=== PATIENT | male | born 1945 | race Caucasian/White ===

== ENCOUNTER 2022-07-07 16:40 | Emergency (ER) | payer OTHER ==
[~2022-07-07] VITALS: Ht 177.8 cm; Wt 90.7 kg
[2022-07-07 17:04] LABS: Source, Urine Clean Catch
[2022-07-07 17:21] LABS: Bilirubin, Urine Neg (Neg); Blood, Urine 2+ (Neg); Glucose Qualitative, Urine 3+ (Neg); Ketones, Urine 4+ (Neg); Leukocyte Esterase, Urine Neg (Neg); Nitrite, Urine Neg (Neg); Protein, Urine 3+ (Neg); Urobilinogen, Urine 1+ (Normal)
[2022-07-07 17:45] LABS: Appearance, Urine Hazy (Clear); Color, Urine Yellow (P-Yellow)
[2022-07-07 17:49] LABS: Red Blood Cells, Urine 0-2 /hpf (0-2); Squamous Epithelial Cells Rare /hpf (Few)
[2022-07-07] MEDS ORDERED: Aspir 8181 MG PO (17:49)
[2022-07-07] MEDS ORDERED: Amlodipine Bes2.5 MG PO (17:49)
[2022-07-07 17:50] LABS: Bacteria Mod /hpf; Mucus Mod (0-Heavy); Renal Epithelial Few /hpf (0-Rare)
[2022-07-07] MEDS ORDERED: FAMO40 PO (17:50)
[2022-07-07] MEDS ORDERED: Carvedilol12.5 MG PO (17:50)
[2022-07-07] MEDS ORDERED: THERA-D2000 UNIT PO (17:50)
[2022-07-07 17:51] LABS: Granular Casts 0-2 /lpf (0); Hyaline Casts 0-2 /lpf (0-2)
[2022-07-07] MEDS ORDERED: LISI20 PO (17:51)
[2022-07-07] MEDS ORDERED: Crestor20 MG PO (17:51)
[2022-07-07] MEDS ORDERED: NITR.4SL SL (17:51)
[2022-07-07] MEDS ORDERED: Isosorbide Mono30 MG PO (17:51)
[2022-07-07 18:27] LABS: BASOPHILS ABSOLUTE AUTO 0.02 K/mm3 (0.00-0.23); BASOPHILS PERCENT AUTO 0 % (0-2); EOSINOPHILS PERCENT AUTO 0 % (0-6); Hematocrit 42.9 % (37.0-53.0); Hemoglobin 15.3 g/dL (13.5-17.5); IMMATURE GRAN ABSOLUTE AUTO 0.02 K/mm3 (0.00-0.10); IMMATURE GRAN PERCENT AUTO 0 % (0-1); LYMPHOCYTES ABSOLUTE AUTO 0.98 K/mm3 (0.84-5.20); LYMPHOCYTES PERCENT AUTO 9 % (21-46); MONOCYTES ABSOLUTE AUTO 0.44 K/mm3 (0.16-1.47); MONOCYTES PERCENT AUTO 4 % (4-13); Mean Corpuscular HGB 30.5 pg (26.0-34.0); Mean Corpuscular HGB Conc 35.7 g/dL (31.5-36.5); Mean Corpuscular Volume 86 fL (80-100); Mean Platelet Volume 9.8 fL (9.1-12.4); NEUTROPHILS ABSOLUTE AUTO 9.86 K/mm3 (1.96-9.15); NEUTROPHILS PERCENT AUTO 87 % (41-73); Platelet Count 211 K/mm3 (150-400); RDW Coefficient Variation 12.6 % (11.7-14.2); RDW Standard Deviation 39.3 fL (35.1-46.3); Red Blood Cell Count 5.02 M/mm3 (4.30-5.90); White Blood Cell Count 11.32 K/mm3 (4.00-11.30)
[2022-07-07 19:06] LABS: Albumin, Blood 4.2 g/dL (3.4-5.0); Albumin/Globulin Ratio 1.2 (0.8-1.8); Bilirubin, Total 2.3 mg/dL (0.1-1.0); Bun/Creatinine Ratio 18.1 (12.0-20.0); Calcium, Blood 9.7 mg/dL (8.5-10.1); Creatinine, Blood 0.83 mg/dL (0.60-1.20); Globulin, Blood 3.4 g/dL (2.2-4.0); Potassium, Blood 3.9 mmol/L (3.5-5.5); Total Protein, Blood 7.6 g/dL (6.4-8.2)
== END 2022-07-07 21:01 | disposition home or self-care (01) ==
LOC: ER 16:40
PROVIDERS: Student in an Organized Health Care Education/Training Program
DX: M54.50 Low back pain, unspecified (principal); K82.8 Other specified diseases of gallbladder; E80.6 Other disorders of bilirubin metabolism; I48.91 Unspecified atrial fibrillation; Z79.899 Other long term (current) drug therapy; Z79.82 Long term (current) use of aspirin; Z87.891 Personal history of nicotine dependence
CPT/HCPCS: 36415; 74176; 80053; 81001; 85025; 87086; 96374; 96375; 99284-25; A9270; J1885; J2270; J7030

== ENCOUNTER 2024-12-09 08:20 | Inpatient (IN) | payer OTHER ==
[~2024-12-09] VITALS: Ht 177.8 cm; Wt 87.4 kg
[~2024-12-09 08:20] MED LIST: Amlodipine Bes2.5 MG PO; Aspir 8181 MG PO; Carvedilol12.5 MG PO; Crestor20 MG PO; FAMO40 PO; Isosorbide Mono30 MG PO; LISI20 PO; NITR.4SL SL; THERA-D2000 UNIT PO
[2024-12-09 09:10] LABS: BASOPHILS ABSOLUTE AUTO 0.03 K/mm3 (0.00-0.23); BASOPHILS PERCENT AUTO 0 % (0-2); EOSINOPHILS PERCENT AUTO 1 % (0-6); Hematocrit 37.3 % (37.0-53.0); Hemoglobin 12.9 g/dL (13.5-17.5); IMMATURE GRAN ABSOLUTE AUTO 0.03 K/mm3 (0.00-0.10); IMMATURE GRAN PERCENT AUTO 0 % (0-1); LYMPHOCYTES ABSOLUTE AUTO 0.86 K/mm3 (0.84-5.20); LYMPHOCYTES PERCENT AUTO 11 % (21-46); MONOCYTES ABSOLUTE AUTO 0.67 K/mm3 (0.16-1.47); MONOCYTES PERCENT AUTO 8 % (4-13); Mean Corpuscular HGB 30.4 pg (26.0-34.0); Mean Corpuscular HGB Conc 34.6 g/dL (31.5-36.5); Mean Corpuscular Volume 88 fL (80-100); Mean Platelet Volume 10.1 fL (9.1-12.4); NEUTROPHILS PERCENT AUTO 79 % (41-73); Platelet Count 208 K/mm3 (150-400); RDW Standard Deviation 44.7 fL (35.1-46.3); Red Blood Cell Count 4.25 M/mm3 (4.30-5.90); White Blood Cell Count 8.19 K/mm3 (4.00-11.30)
[2024-12-09 09:30] LABS: Albumin, Blood 3.6 g/dL (3.4-5.0); Bilirubin, Total 3.4 mg/dL (0.1-1.0); Bun/Creatinine Ratio 20.6 (12.0-20.0); Calcium, Blood 8.6 mg/dL (8.5-10.1); Creatinine, Blood 0.63 mg/dL (0.60-1.20); Globulin, Blood 3.5 g/dL (2.2-4.0); Total Protein, Blood 7.1 g/dL (6.4-8.2)
[2024-12-09 09:39] LABS: Free Thyroxine 1.11 ng/dL (0.70-1.60); Magnesium, Blood 1.9 mg/dL (1.6-2.4); Thyroid Stimulating Hormone 1.9 uIU/mL (0.360-4.800)
[2024-12-09 11:04] LABS: Influenza A, PCR NEGATIVE (NEGATIVE); Influenza B, PCR NEGATIVE (NEGATIVE); Resp Syncytial Virus, PCR NEGATIVE (NEGATIVE); SARS-Cov-2 (COVID-19) PCR, MMC NEGATIVE (NEGATIVE)
[2024-12-09] MEDS ORDERED: Furosemide 10 MG/ML 4ML Vial IV ONE (11:05)
[2024-12-09] MEDS ORDERED: Nitroglycerin 0.4 MG SUBL SL PRN (12:05)
[2024-12-09] MEDS ORDERED: FLU VACC TS2024-25(6MOS UP)/PF 45 MCG/0.5 ML SYRINGE IM PRN (12:10)
[2024-12-09] MEDS ORDERED: Furosemide 10 MG/ML 4ML Vial IV SCH ×2 (14:00)
--- NOTE | 2024-12-09 14:02 | NUR ---
CALLED ON PROVIDER CONSULT FOR DR. RICHARDS AT 1343.
[2024-12-09 14:39] VITALS: BP 130/74
--- NOTE | 2024-12-09 14:43 | NUR ---
ADMISSION NOTE: PATIENT ARRIVED TO THE UNIT AT 1430 VIA WHEELCHAIR, WAS ABLE TO SELF TRANSFER OUT OF THE CHAIR AND INTO THE BATHROOM AND ONTO THE BED. VITALS OBTAINED; PATIENT HAS A FIB-IRREGULAR RATE SO PULSE RATE INACCURATE WITH VITALS CART. PATIENT'S IV ASSESSED, AND SETTLED IN ROOM, NO SIGNS OR SYPTOMS OF DISTRESS,CALL LIGHT PROVIDED, SITTED AT EDGE OF BED, PLAN OF CARE ONGOING.
[2024-12-09] MEDS ORDERED: ELIQUIS5 M2 (14:51)
[2024-12-09] MEDS ORDERED: ROSUVASTATIN CA20 MG PO (14:55)
[2024-12-09] MEDS ORDERED: METF500 PO (14:56)
[2024-12-09 16:11] LABS: CHOL/HDL RATIO 2.6; Cholesterol 111 mg/dL (50-200); HDL Cholesterol 43 mg/dL (>39); LDL/HDL RATIO 1.1; Low Density Lipoprotein Chol 47 mg/dL (0-110); Triglycerides 106 mg/dL (30-160); Very Low Density Lipoprot Chol 21 mg/dL (6-32)
[2024-12-09] MEDS ORDERED: Insulin Human Lispro 100 Units/ML 3ML Syringe SC SCH (16:30)
--- NOTE | 2024-12-09 16:47 | NUR ---
THIS RN ASSUMED CARE OF PT FROM SYLVAIN AGEE RN. SUSIE CURRENTLY IN ROOM FOR CARDIOLOGY CONSULT, PLAN FRO ANGIO IN THE NEXT DAY OR TWO. CARITO CORTEZ. PT INDEPENDENT IN ROOM, A/O, ORIENTED TO USE OF CALL SYSTEM.
[2024-12-09] MEDS ORDERED: Carvedilol 6.25 MG Tab PO SCH ×2 (17:00)
[2024-12-09 17:31] VITALS: BP 141/82
[2024-12-09] MEDS ORDERED: Spironolactone 12.5 MG TAB PO SCH (18:00)
[2024-12-09] MEDS ORDERED: Empagliflozin 10 MG TAB PO SCH (18:00)
[2024-12-09 19:37] VITALS: BP 121/78
[2024-12-09] MEDS ORDERED: Lactobacil 2-S.Thermo-Bifido 1 1 Cap PO SCH (21:00)
[2024-12-09] MEDS ORDERED: AmLODIPine Besylate 5 MG Tab PO SCH (21:00)
[2024-12-09] MEDS ORDERED: Lisinopril 20 MG Tab PO SCH ×2 (21:00)
[2024-12-09] MEDS ORDERED: Apixaban 5 MG Tab PO SCH (21:00)
[2024-12-10 00:34] VITALS: BP 119/59
--- NOTE | 2024-12-10 03:11 | NUR ---
SHIFT SUMMARY PT IS A/O X4, ABLE TO MAKE HIS NEEDS KNOWN AND COOPERATIVE WITH CARE. NPO AFTER MIDNIGHT FOR ANGIOGRAM TODAY. HS BG 217. TELE A-FIB @79/ PT DENIES SOB, PAIN/PRESSURE. RA,SAT'S>91%. PT IS INDEPNDENT W/I THE HOSPITAL ROOM, VOIDING WELL. STRICT I&O'S, DAILY WT. BED AT THE LOWEST POSITION, CALL LIGHT W/I REACH.
[2024-12-10 03:13] VITALS: BP 134/69
[2024-12-10 05:24] LABS: BASOPHILS ABSOLUTE AUTO 0.05 K/mm3 (0.00-0.23); BASOPHILS PERCENT AUTO 1 % (0-2); EOSINOPHILS ABSOLUTE AUTO 0.15 K/mm3 (0.00-0.68); EOSINOPHILS PERCENT AUTO 2 % (0-6); Hematocrit 43.9 % (37.0-53.0); Hemoglobin 14.9 g/dL (13.5-17.5); IMMATURE GRAN ABSOLUTE AUTO 0.03 K/mm3 (0.00-0.10); IMMATURE GRAN PERCENT AUTO 0 % (0-1); LYMPHOCYTES ABSOLUTE AUTO 1.22 K/mm3 (0.84-5.20); LYMPHOCYTES PERCENT AUTO 14 % (21-46); MONOCYTES ABSOLUTE AUTO 0.74 K/mm3 (0.16-1.47); MONOCYTES PERCENT AUTO 9 % (4-13); Mean Corpuscular HGB 30.3 pg (26.0-34.0); Mean Corpuscular HGB Conc 33.9 g/dL (31.5-36.5); Mean Corpuscular Volume 89 fL (80-100); Mean Platelet Volume 9.9 fL (9.1-12.4); NEUTROPHILS ABSOLUTE AUTO 6.54 K/mm3 (1.96-9.15); NEUTROPHILS PERCENT AUTO 75 % (41-73); Platelet Count 247 K/mm3 (150-400); RDW Coefficient Variation 13.8 % (11.7-14.2); RDW Standard Deviation 45.3 fL (35.1-46.3); Red Blood Cell Count 4.92 M/mm3 (4.30-5.90); White Blood Cell Count 8.73 K/mm3 (4.00-11.30)
[2024-12-10 06:00] LABS: Albumin, Blood 4.3 g/dL (3.4-5.0); Bilirubin, Total 4.7 mg/dL (0.1-1.0); Bun/Creatinine Ratio 15.8 (12.0-20.0); Calcium, Blood 9.5 mg/dL (8.5-10.1); Creatinine, Blood 0.76 mg/dL (0.60-1.20); Globulin, Blood 4.1 g/dL (2.2-4.0); Magnesium, Blood 2.1 mg/dL (1.6-2.4); Potassium, Blood 3.4 mmol/L (3.5-5.5); Total Protein, Blood 8.4 g/dL (6.4-8.2)
[2024-12-10] MEDS ORDERED: Famotidine 20 MG Tab PO SCH (06:00)
[2024-12-10 07:35] VITALS: BP 143/69
[2024-12-10] MEDS ORDERED: Isosorbide Mononitrate 60 MG TABCR PO SCH ×2 (09:00)
[2024-12-10] MEDS ORDERED: Aspirin 81 MG TabEC PO SCH (09:00)
[2024-12-10] MEDS ORDERED: Enoxaparin 40 MG/0.4 ML SYR SC SCH (09:00)
[2024-12-10] MEDS ORDERED: Cholecalciferol 1000 Unit Tablet (=25MCG) PO SCH (09:00)
[2024-12-10] MEDS ORDERED: Furosemide 40 MG Tab PO SCH (09:00)
[2024-12-10] MEDS ORDERED: Rosuvastatin Calcium 10 MG Tab PO SCH (09:00)
[2024-12-10] MEDS ORDERED: Furosemide 10 MG/ML 4ML Vial IV SCH (09:00)
[2024-12-10 11:30] VITALS: BP 118/73
[2024-12-10] MEDS ORDERED: Potassium Chloride 20 MEQ TabCR PO SCH (14:00)
--- NOTE | 2024-12-10 14:30 | NUR ---
CALLED [facility] AT 0900 INQUIRING ABOUT ANGIOGRAM TIME FOR THE PATIENT;I WAS NOTIFIED AROUND NOON (1200) SINCE PATIENT WAS 4TH ON THE LIST. I CALLED DR. RICHARDS TO CONFIRM ORAL MEDICATIONS; HE ADVISED THAT THE PATIENT CAN TAKE HIS MEDS ORDERED, BUT HE MAY NOT GET HIS ANGIOGRAM UNTIL TOMORROW, BUT TO KEEP HIM NPO. AT 1220 I CALLED THE [facility] AGAIN AND WAS TOLD THAT THEY WOULD UPDATE ME IN 1.5 HOURS. CALLED AGAIN AT 1420 FOR AN UPDATE AND WAS TOLD THAT THE PATIENT IS LAST ON THE LIST AND CANNOT GIVE ME A TIME. PATIENT HAS BEEN NOTIFIED.
--- NOTE | 2024-12-10 14:38 | NUR ---
TELE CALLED WITH A REPORT OF A RUN OF 4 BEATS OF PVCS WITH THE PATIENT. PATIENT ALERT, DENIES ANY S/S, NO SIGNS OR SYMPTOMS OF DISTRESS.
[2024-12-10 14:44] LABS: Bilirubin, Direct 0.4 mg/dL (0.0-0.3); Bilirubin, Indirect 3.7 mg/dL (0.1-0.7); Bilirubin, Total 4.1 mg/dL (0.1-1.0)
[2024-12-10 15:15] VITALS: BP 120/86
--- NOTE | 2024-12-10 17:13 | NUR ---
SHIFT SUMMARY: PATIENT HAS BEEN NPO SINCE AFTER 0000 AWAITING AN ANGIOGRAM; UNFORTUNATELY THEY ARE GOING TO BE PUSHING IT OUT TO TOMORROW; HOPEFULLY MORNING. HE HAS BEEN A&OX4/INDEPEDENT, PLEASANT AND COOPERATIVE WITH CARE. MONITORING PATIENT'S I&O'S, HE DENIES SHORTNESS OF BREATH OR CHEST PAIN. HE IS IN BED, DR. RICHARDS AT BEDSIDE, CALL LIGHT WITHIN REACH, NO SIGNS OR SYMPTOMS OF DISTRESS, PLAN OF CARE ONGOING. PATIENT NPO AFTER MIDNIGHT FOR ANGIOGRAM TOMORROW.
[2024-12-10] MEDS ORDERED: Sacubitril/Valsartan 24 MG-26 MG Tab PO SCH (19:00)
[2024-12-10 20:40] VITALS: BP 111/59
[2024-12-11] VITALS (22 sets, daily range): BP systolic 80–129; BP diastolic 45–110
--- NOTE | 2024-12-11 00:04 | NUR ---
NOTIFIED BY SENIOR ANALYTICAL CHEMIST PT HAD 2 RUNS OF BRADYCARDIA IN MID TO HIGH 30'S. WHEN CHECKED PT AWAKE AND ASYMPTOMATIC AND RUNNING AFIB IN 60'S ON TELE. HOSPITALIST NOTIFIED AND NO FURTHER ORDERS GIVEN BESIDES TO CONTINUE TO MONITOR FOR CHANGE IN PT CONDITION.
--- NOTE | 2024-12-11 05:48 | NUR ---
SHIFT SUMMARY NOC PT A/O X 4. PLEASANT AND COOPERATIVE WITH CARE. HS CBG 203 CNI. PT ON TELE AFIB IN 60'S-70'S, BUT HAD 2 RUNS IN MID 30'S. PT ASSESSED AND ASYMPTOMATIC AND HOSPITALIST NOTIFIED WITH NO FURTHER ORDERS GIVEN. PT HAS BEEN NPO SINCE MIDNIGHT FOR ANGIOGRAM SCHEDULED FOR THIS MORNING. PT REPORTS ANXIETY ABOUT WHAT WILL BE FOUND AND WHAT PLAN GOING FORWARD WILL BE. PT CURRENTLY RESTING WITH BED IN LOWEST POSITION, AND CALL LIGHT WITHIN REACH.
[2024-12-11 09:59] LABS: Albumin, Blood 3.7 g/dL (3.4-5.0); Albumin/Globulin Ratio 1.1 (0.8-1.8); Bilirubin, Direct 0.5 mg/dL (0.0-0.3); Bilirubin, Indirect 2.8 mg/dL (0.1-0.7); Bilirubin, Total 3.3 mg/dL (0.1-1.0); Bun/Creatinine Ratio 23.9 (12.0-20.0); Creatinine, Blood 0.79 mg/dL (0.60-1.20); Globulin, Blood 3.4 g/dL (2.2-4.0); Potassium, Blood 4.2 mmol/L (3.5-5.5); Total Protein, Blood 7.1 g/dL (6.4-8.2)
--- NOTE | 2024-12-11 10:24 | NUR ---
TELE CALLED REPORTING BRADYCARDIA IN THE 40-30'S; PATIENT ASLEEP DURING THIS TIME. PATIENT NOW AWAKE; A FIB 79; NOTIFIED.
[2024-12-11] MEDS ORDERED: Verapamil HCL 2.5 MG/ML 2ML Injection ONE (10:29)
[2024-12-11] MEDS ORDERED: Nitroglycerin 2 MG/20 ML BTL ONE (10:30)
[2024-12-11] MEDS ORDERED: NS 1,000 ML IV ONE ×2 (10:30→10:39)
[2024-12-11] MEDS ORDERED: NS 250 ML IV ONE (10:30)
[2024-12-11] MEDS ORDERED: Heparin Sodium 1000 Units/ML 10ML MDV ONE (10:30)
[2024-12-11] MEDS ORDERED: Midazolam HCl 1MG / ML 2ML Vial ONE (10:39)
[2024-12-11] MEDS ORDERED: FentaNYL Citrate 50 MCG/ML 2 ML Injection ONE (10:39)
--- NOTE | 2024-12-11 10:40 | NUR ---
PATIENT WHEELED DOWN FOR HIS ANGIOGRAM; NO SIGNS OR SYMPTOMS OF DISTRESS.
--- NOTE | 2024-12-11 17:58 | NUR ---
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 Pt oriented to room and call light. Educated on activity restrictions with right hand. Right radial site, TR band in place, small amount of oozing noted while deflating, added air back in; no noted ozzing when restarted deflation; recovered per orders, tegaderm in place. Pt alert, oriented x4; calm and cooperative with care. Tele afib with slow ventricular 40-60's, bp soft map under 60's for short time, notified Dr Nichols, plans to monitor, bp trending up. 5 beat run of vtach; assymptomaticMD aware. Pt had Spo2 >90% on ra while awake, on 2l o2 via nc while sleeping. Abd soft, nontender, +bt noted. No edema noted. Other vss. No other acute changes noted. Will continue to monitor.
[2024-12-11] MEDS ORDERED: Sacubitril/Valsartan 24 MG-26 MG Tab PO SCH (21:00)
[2024-12-12 00:06] VITALS: BP 142/72
[2024-12-12 04:27] VITALS: BP 147/74
[2024-12-12 04:52] LABS: Hematocrit 42.8 % (37.0-53.0); Hemoglobin 14.7 g/dL (13.5-17.5); Mean Corpuscular HGB 30.3 pg (26.0-34.0); Mean Corpuscular HGB Conc 34.3 g/dL (31.5-36.5); Mean Corpuscular Volume 88 fL (80-100); Mean Platelet Volume 10.3 fL (9.1-12.4); Platelet Count 247 K/mm3 (150-400); RDW Coefficient Variation 13.8 % (11.7-14.2); RDW Standard Deviation 44.5 fL (35.1-46.3); Red Blood Cell Count 4.85 M/mm3 (4.30-5.90); White Blood Cell Count 9.78 K/mm3 (4.00-11.30)
[2024-12-12 05:16] LABS: Albumin, Blood 3.6 g/dL (3.4-5.0); Anion Gap 11 mmol/L (3-11); Blood Urea Nitrogen 22 mg/dL (8-24); Bun/Creatinine Ratio 23.7 (12.0-20.0); CO2, Blood 27 mmol/L (21-32); Calcium, Blood 8.9 mg/dL (8.5-10.1); Chloride, Blood 104 mmol/L (98-108); Creatinine, Blood 0.93 mg/dL (0.60-1.20); Glomerular Filtration Rate 84 (60-); Glucose, Blood 123 mg/dL (70-99); Phosphorus, Blood 4.4 mg/dL (2.5-4.9); Potassium, Blood 3.8 mmol/L (3.5-5.5); Sodium, Blood 138 mmol/L (136-145)
--- NOTE | 2024-12-12 05:45 | NUR ---
pt rested at intervals. pt had episodes of low heart rate, between 35-40. pt asymptomatic, denies chest pain or shortness of breath. rt wrist intact, tegraderm in place. no swelling or bleeding from site. pt up to bathroom with standby assistance. pt had 1 episode of trigemeny, remains asymtomatic. call light in reach, bed alarm in use. will continue to monitor
[2024-12-12 07:45] VITALS: BP 132/81
[2024-12-12] MEDS ORDERED: Furosemide 20 MG Tab PO SCH (09:00)
--- NOTE | 2024-12-12 10:13 | NUR ---
ASSUMPTION OF CARE: GERRY IS ALERT AND ORIENTED X 4 ABLE TO MAKE NEEDS KNOWN, PLEASANT, COOPERATIVE, RIGHT RADIAL SITE C/D/I. NO ACUTE CONCERNS. DENIES CHEST PAIN PRESSURE OR SOB AT REST OR WITH EXERTION NOTED AT THIS TIME OF ASSESSMENT. PATIENT VSS. COMPRESSION SOCKS IN PLACE, READJUSTED PPP. GERRY HAS SOME MINOR DIFFICULTY TAKING PILLS WHICH IS HIS BEDLINE, JUST REQUIRES EXTRA WATER. 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 AFIB 50-60'S. PLAN OF CARE CONTINUES.
[2024-12-12 12:11] VITALS: BP 115/80
[2024-12-12] MEDS ORDERED: ELIQUIS5 M2 PO (12:50)
[2024-12-12] MEDS ORDERED: JARDIANCE10 MG PO (12:52)
[2024-12-12] MEDS ORDERED: FURO20 PO (12:53)
[2024-12-12] MEDS ORDERED: Potassium Chlo20 ME1 PO (12:54)
[2024-12-12] MEDS ORDERED: ENTRESTO 24 MG1 EACH PO (12:55)
[2024-12-12] MEDS ORDERED: SPIR25 PO (12:55)
--- NOTE | 2024-12-12 15:14 | NUR ---
Discharge Summary: Patient remained to improve through the shift. Cardiology and Hospitalist both rounded on patient and agree to discharge patient. Patient agreeable to plan. home meds faxed by special procedures technologist. IV removed by this RN. Educated of >45 minutes given to patient in regaurds to medcications disease process and continued plan of care. Patient has been chest pain free. No acute distress noted. patient set up for a ride by Case Management. Patient wheeled out by PCT and another RN. VSS no acute concerns from patient or this RN at time of discharge.
[2024-12-12 16:51] LABS: HAPTOGLOBIN 153 mg/dL (30-200)
[2024-12-12] MEDS ORDERED: Carvedilol 6.25 MG Tab PO SCH (17:00)
[2024-12-12] MEDS ORDERED: Sacubitril/Valsartan 24 MG-26 MG Tab PO SCH (21:00)
[2024-12-12] MEDS ORDERED: Apixaban 5 MG Tab PO SCH (21:00)
[2024-12-13 14:34] LABS: HEPATITIS A ANTIBODY, IGM Negative (Negative); HEPATITIS B CORE ANTIBODY, IGM Negative (Negative); HEPATITIS B SURFACE ANTIGEN Negative (Negative); HEPATITIS C AB CIA INTERP Negative (Negative); HEPATITIS C ANTIBODY CIA INDEX 0.08 IV
== END 2024-12-12 14:17 | disposition home or self-care (01) | DRG 286 ==
LOC: ER 08:20 → MEDS 08:21 → PCU 12-10 16:33 → MEDS 12-10 16:33 → PCU 12-11 11:02
PROVIDERS: Emergency Medicine; Family Medicine; Internal Medicine; ADMIT Internal Medicine
PROC: 4A023N7 Measurement of Cardiac Sampling and Pressure, Left Heart, Percutaneous Approach (ICD-10-PCS; principal; 2024-12-11)
PROC: B2111ZZ Fluoroscopy of Multiple Coronary Arteries using Low Osmolar Contrast (ICD-10-PCS; 2024-12-11)
DX: I11.0 Hypertensive heart disease with heart failure (principal); I50.23 Acute on chronic systolic (congestive) heart failure; I48.19 Other persistent atrial fibrillation; I25.10 Atherosclerotic heart disease of native coronary artery without angina pectoris; E66.9 Obesity, unspecified; E78.5 Hyperlipidemia, unspecified; E11.9 Type 2 diabetes mellitus without complications; F41.9 Anxiety disorder, unspecified; N40.0 Benign prostatic hyperplasia without lower urinary tract symptoms; K82.8 Other specified diseases of gallbladder; R59.1 Generalized enlarged lymph nodes; E80.6 Other disorders of bilirubin metabolism; Z79.899 Other long term (current) drug therapy; Z79.82 Long term (current) use of aspirin; Z98.890 Other specified postprocedural states; Z79.811 Long term (current) use of aromatase inhibitors; I25.2 Old myocardial infarction; Z79.01 Long term (current) use of anticoagulants; Z87.891 Personal history of nicotine dependence; Z86.79 Personal history of other diseases of the circulatory system; Z90.49 Acquired absence of other specified parts of digestive tract; Z68.30 Body mass index [BMI] 30.0-30.9, adult; Z79.84 Long term (current) use of oral hypoglycemic drugs
CPT/HCPCS: 0241U; 36415; 71045; 74177; 76937; 80048; 80053; 80061; 80069; 80074; 80076; 82247; 82248; 82947; 82977; 83010; 83036; 83615; 83735; 83880; 84153; 84439; 84443; 84484; 85025; 85027; 85060; 93005; 93010; 93458; 94762; 99152; 99153; 99285-25; A9270; C1769; C1887; C1894; C8929; G0378; J1644; J1940; J2250; J3010; J7030; J7050; Q9957; Q9967